=== PATIENT | male | born 1980 | race Caucasian/White ===

== ENCOUNTER 2018-04-03 10:24 | Emergency (ER) | payer BC ==
[2018-04-03 10:34] VITALS: BP 145/78
--- NOTE | 2018-04-03 11:41 | UC ---
Skin Complaint HPI - HPI Summary HPI Summary: Pt Pt c/o gradual onset of painful lump left inner buttock cheek that began 3 days ago. Pt has been warm packing area and noting increased pain no drainage. - History of Current Complaint Chief Complaint: [facility]CSkin Time Seen by Provider: 04/03/18 11:27 Stated Complaint: SKIN ISSUE Hx Obtained From: Patient Hx From Patient Unobtainable Due To: Dementia Onset/Duration: Gradual Onset, Lasting Days, Still Present Skin Exposure Onset/Duration: Days Ago Timing: Constant Onset Severity: Mild Current Severity: Moderate Pain Intensity: 8 Location: Discrete - left mid inner buttocks. Character: Pain, Raised, Painful Aggravating Factor(s): Touch Alleviating Factor(s): Nothing Associated Signs & Symptoms: Positive: Tenderness - Allergy/Home Medications Allergies/Adverse Reactions: Allergies Allergy/AdvReac Type Severity Reaction Status Date / Time cefaclor [From Ceclor] Allergy unk Verified 04/03/18 10:34 PMH/Surg Hx/FS Hx/Imm Hx Previously Healthy: Yes - Surgical History Surgical History: Yes Surgery Procedure, Year, and Place: knee ,broken blood vessel repaired - Family History Known Family History: Positive: Cardiac Disease - Social History Occupation: Employed Full-time Lives: With Family Alcohol Use: Occasionally Substance Use Type: Marijuana Smoking Status (MU): Never Smoked Tobacco Have You Smoked in the Last Year: No Review of Systems All Other Systems Reviewed And Are Negative: Yes Constitutional: Positive: Negative Skin: Positive: Other - non erytheamtous, raised mass ~ 2.5 cm X 2.5 cm in diameter Eyes: Positive: Negative ENT: Positive: Negative Respiratory: Positive: Negative Cardiovascular: Positive: Negative Gastrointestinal: Positive: Negative Genitourinary: Positive: Negative Motor: Positive: Negative Neurovascular: Positive: Negative Musculoskeletal: Positive: Negative Neurological: Positive: Negative Psychological: Positive: Negative Is Patient Immunocompromised?: No Physical Exam Vital Signs: Initial Vital Signs Temp 98 F 04/03/18 10:31 Pulse 100 04/03/18 10:31 Resp 20 04/03/18 10:31 BP 145/78 04/03/18 10:31 Pulse Ox 100 04/03/18 10:31 Course/Dx - Course Course Of Treatment: I discussed with the pt the need to continue to warm pack and to follow up with PCP and/or with surgeon - Differential Diagnoses - Skin Complaint Differential Diagnoses: Abscess, MRSA - Diagnoses Provider Diagnosis: Abscess Discharge - Sign-Out/Discharge Documenting (check all that apply): Patient Departure All imaging exams completed and their final reports reviewed: No Studies - Discharge Plan Condition: Stable Disposition: HOME Prescriptions: Sulfamethox/Trimethoprim DS* [Bactrim DS 800/160 TAB*] 1 tab PO Q12H #20 tab Patient Education Materials: Abscess (ED) Referrals: Aristides Travis MD [Medical Doctor] - If Needed Lucila Roger MD [Primary Care Provider] - If Needed - Billing Disposition and Condition Condition: STABLE Disposition: Home
== END 2018-04-03 11:58 | disposition home or self-care (01) ==
LOC: UCEAST 10:24
DX: L02.31 Cutaneous abscess of buttock (principal); F03.90 Unspecified dementia, unspecified severity, without behavioral disturbance, psychotic disturbance, mood disturbance, and anxiety; Z88.1 Allergy status to other antibiotic agents
CPT/HCPCS: 99202; G0463